=== PATIENT | male | born 1970 | race Hispanic/Latino ===

== ENCOUNTER 2022-07-02 06:54 | Emergency (ER) | payer SELFPAY ==
[2022-07-02 09:08] LABS: Basophils % (Auto) 0.7 % (0.0-1.8); Eosinophils # (Auto) 0.1 K/mm3 (0.0-0.4); Eosinophils % (Auto) 0.8 % (0.0-4.3); Hematocrit 42.1 % (35.5-45.6); Hemoglobin 13.8 gm/dl (11.8-15.2); Lymphocytes # (Auto) 1.5 K/mm3 (1.2-5.4); Lymphocytes % (Auto) 23.5 % (13.4-35.0); Mean Corpuscular HGB Conc 33 % (32-34); Mean Corpuscular Volume 77 fl (84-94); Monocytes # (Auto) 0.5 K/mm3 (0.0-0.8); Platelet Count 120 K/mm3 (140-440); Red Blood Count 5.44 M/mm3 (3.65-5.03); Red Cell Distribution Width 19.4 % (13.2-15.2)
[2022-07-02 09:29] LABS: Alanine Aminotransferase 24 units/L (7-56); Albumin 4.2 g/dL (3.9-5); BUN/Creatinine Ratio 15; Blood Urea Nitrogen 18 mg/dL (9-20); Hemolysis Index 4
[2022-07-02] MEDS ORDERED: IBUPROFEN 600 MG TAB PO ONE (20:13)
[2022-07-03] MEDS ORDERED: SODIUM CHLORIDE 0.9% 500 ML 500 ML IV ONE (01:42)
[2022-07-03] MEDS ORDERED: MORPHINE 4 MG/1 ML INJ IV ONE (01:42)
[2022-07-03] MEDS ORDERED: PANTOPRAZOLE 40 MG INJ IV ONE (01:42)
[2022-07-03] MEDS ORDERED: ONDANSETRON 4 MG/2 ML INJ IV ONE (01:42)
--- NOTE | 2022-07-03 01:46 | Emergency Department Report ---
ED General Adult HPI - General Chief complaint: Nausea/Vomiting/Diarrhea Stated complaint: VOMITING PUI?: No Time Seen by Provider: 07/03/22 01:29 Source: patient, EMS ( EMS documentation not available at time of chart di ctation ), RN notes reviewed Mode of arrival: Stretcher Limitations: No Limitations - History of Present Illness Initial comments: The patient was evaluated in the emergency department for symptoms described in the history of present illness. He/she was evaluated in the context of the global COVID-19 pandemic, which necessitated consideration that the patient might be at risk for infection with the virus that causes COVID-19. Institutional protocols and algorithms that pertain to the evaluation of chaz ents at risk for COVID-19 are in a state of rapid change based on information released by regulatory bodies including the CDC and federal and state organizations. These policies and algorithms were followed during the patient's care in the emergency department. Please note that these policies, procedures and recommendations changed on a rapid basis. This is a 51-year-old gentleman with a history of morbid obesity, tobacco abuse, hypertension, presumed neuropathy, underlying psychiatric disease, who is currently on a 1013 for suicidality. The patient is not currently suicidal. 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 He also endorses chronic lower back pain. The patient presents to the department today with complaint of lower abdominal pain, and back pain, with nausea and vomiting. He also believes that he is thrown up some reddish stuff, perhaps blood, but he is not certain. He has chest wall pain associate with vomiting from yesterday. He reports brown stool, with possible red blood. He denies testicular pain, without urinary symptoms He believes that he last defecated this morning. -: Gradual, hour(s), days(s) Location: chest, back, abdomen Severity scale (0 -10): 5 Quality: aching Consistency: intermittent Improves with: rest Worsens with: movement - Related Data Previous Rx's Medication Instructions Recorded Last Taken Type Metoclopramide [Reglan] 10 mg PO Q6HR PRN #30 tablet 07/03/22 Unknown Rx Pantoprazole [Protonix TAB] 20 mg PO BID #60 tab 07/03/22 Unknown Rx Allergies Allergy/AdvReac Type Severity Reaction Status Date / Time No Known Allergies Allergy Unverified 07/02/22 07:02 ED Review of Systems ROS: Stated complaint: VOMITING Other details as noted in HPI Constitutional: denies: fever Eyes: denies: eye discharge ENT: denies: dental pain Respiratory: denies: stridor, wheezing Cardiovascular: chest pain Gastrointestinal: abdominal pain, nausea, vomiting, hematochezia. denies: melena Genitourinary: denies: dysuria, testicular pain Musculoskeletal: back pain Neurological: denies: weakness Psychiatric: anxiety. denies: auditory hallucinations, visual hallucinations, homicidal thoughts, suicidal thoughts Hematological/Lymphatic: denies: easy bleeding ED Past Medical Hx - Medications Home Medications: Home Medications Medication Instructions Recorded Confirmed Last Taken Type Metoclopramide [Reglan] 10 mg PO Q6HR PRN #30 tablet 07/03/22 Unknown Rx Pantoprazole [Protonix TAB] 20 mg PO BID #60 tab 07/03/22 Unknown Rx ED Physical Exam - General Limitations: No Limitations General appearance: alert, in no apparent distress, obese - Head Head exam: Present: atraumatic, normocephalic - Eye Eye exam: Present: normal appearance, EOMI. Absent: nystagmus - ENT ENT exam: Present: normal exam, normal orophraynx, mucous membranes moist, normal external ear exam - Neck Neck exam: Present: normal inspection, full ROM. Absent: tenderness, men ingismus - Respiratory Respiratory exam: Present: normal lung sounds bilaterally, chest wall tenderness. Absent: respiratory distress, wheezes, rales, rhonchi, stridor, decreased breath sounds - Cardiovascular Cardiovascular Exam: Present: regular rate, normal rhythm, normal heart sounds. Absent: bradycardia, tachycardia, irregular rhythm, systolic murmur, diastolic murmur, rubs, gallop - GI/Abdominal GI/Abdominal exam: Present: soft, tenderness, other (There is mild lower abd ominal tenderness to deep palpation). Absent: distended, guarding, rebound, rigid, pulsatile mass - Rectal Rectal exam: Present: normal inspection, normal rectal tone, other (Patient provides consent for digital rectal examination. Retail Account Specialist in the room during rectal examination.). Absent: black stool, bloody stool, fecal impaction, hemorrhoids, prostate tenderness, prostate enlargement - exam: Present: normal inspection, other (There is normal testicular lie. There is normal cremasteric reflex. There is no testicular tenderness. There is no testicular swelling). Absent: testicular tenderness External exam: Present: normal external exam (Patient provides consent for genital examination, tipple operator in room.) - Extremities Exam Extremities exam: Present: normal inspection, full ROM, other (2+ pulses noted in the bilateral upper and lower extremities. There is no palpable cord. negative Homans sign. Muscular compartments are soft. The pelvis is stable.). Absent: calf tenderness - Back Exam Back exam: Present: normal inspection, muscle spasm, paraspinal tenderness. Absent: tenderness, CVA tenderness (R), CVA tenderness (L), vertebral tenderness - Neurological Exam Neurological exam: Present: alert, oriented X3, normal gait, other (No facial droop. Tongue midline. Extraocular movements intact bilaterally. Facial sensation intact to light touch in V1, V2, V3 distribution bilaterally. 5 and a 5 strength in 4 extremities. Sensation intact to light touch in 4 extremities.). Absent: motor sensory deficit - Psychiatric Psychiatric exam: Absent: homicidal ideation, suicidal ideation - Skin Skin exam: Present: warm, dry, intact, normal color. Absent: rash ED Course Vital Signs 07/02/22 07/02/22 07/03/22 06:59 20:14 02:45 Temperature 97.6 F 98.1 F Pulse Rate 105 H 99 H Respiratory 16 18 Rate Blood Pressure Blood Pressure 107/76 133/78 [Right] O2 Sat by Pulse 95 97 98 Oximetry 07/03/22 03:01 Temperature Pulse Rate 89 Respiratory 21 Rate Blood Pressure 113/72 Blood Pressure [Right] O2 Sat by Pulse 96 Oximetry - Reevaluation(s) Reevaluation #1: 07/03/22 02:38 Differential diagnosis, including but not limited to: Costochondritis, Ariadne- Moraes tear, gastritis, pneumonia, mechanical back pain, colitis, diverticulitis, renal colic, appendicitis, AAA Assessment and plan: 51-year-old gentleman, who is afebrile, with reassuring vital signs, resolved tachycardia, resenting with a primary complaint of lower abdominal pain, lower back pain, multiple secondary complaints, including chest wall pain, nausea, vomiting, possible reddish emesis, possible blood on stool. In terms of the patient's abdominal pain and back pain, obtain CT scan abdomen pelvis, and treat symptoms. Hemoglobin, hematocrit stable x2. Presuming troponin negative x1, chest wall pain present for over 24 hours, the patient denies DVT and pulmonary embolism risk factors, he is low risk by Wells criteria for pulmonary embolism. Therefore, I think a PE is very unlikely. In terms of the patient's abdominal pain, obtain CT scan of the abdomen pelvis. In terms of the patient's chest wall pain, x-ray the chest unremarkable, tr oponin negative x1, currently awaiting EKG. In terms of the patient's complaint of reddish emesis, he has no blood on rectal examination, I have not seen him vomit, his chest x-ray is unremarkable and hemoglobin, hematocrit are unremarkable at this time. Avoid NSAIDs, alcohol, tobacco, start PPI, outpatient GI follow-up. Currently awaiting EKG, CT scan abdomen pelvis. 07/03/22 03:33 CT scan abdomen pelvis suggest cirrhotic changes. The patient does report that he is an alcoholic. His EKG is not a STEMI. His troponin is negative. He is drinking water. There is no active vomiting. He denies irritative and obstructive urinary symptoms, as well as testicular pain. His exam is benign and unremarkable. Patient advised as to CT scan findings. We discussed diet lifestyle modifications. He may follow-up with outpatient GI. ED Medical Decision Making - Lab Data Result diagrams: 07/03/22 01:51 07/02/22 08:52 Vital Signs 07/02/22 07/02/22 06:59 20:14 Temperature 97.6 F 98.1 F Pulse Rate 105 H 99 H Respiratory 16 18 Rate Blood Pressure 107/76 133/78 [Right] O2 Sat by Pulse 95 97 Oximetry Lab Results 07/02/22 07/02/22 07/02/22 Range/Units 08:52 08:52 08:52 WBC 6.2 (4.5-11.0) K/mm3 RBC 5.44 H (3.65-5.03) M/mm3 Hgb 13.8 (11.8-15.2) gm/dl Hct 42.1 (35.5-45.6) % MCV 77 L (84-94) fl MCH 25 L (28-32) pg MCHC 33 (32-34) % RDW 19.4 H (13.2-15.2) % Plt Count 120 L (140-440) K/mm3 Lymph % (Auto) 23.5 (13.4-35.0) % Pitt % (Auto) 8.0 H (0.0-7.3) % Eos % (Auto) 0.8 (0.0-4.3) % Baso % (Auto) 0.7 (0.0-1.8) % Lymph # (Auto) 1.5 (1.2-5.4) K/mm3 Pitt # (Auto) 0.5 (0.0-0.8) K/mm3 Eos # (Auto) 0.1 (0.0-0.4) K/mm3 Baso # (Auto) 0.0 (0.0-0.1) K/mm3 Seg Neutrophils % 67.0 (40.0-70.0) % Seg Neutrophils # 4.2 (1.8-7.7) K/mm3 Sodium 140 (137-145) mmol/L Potassium 4.5 (3.6-5.0) mmol/L Chloride 106.3 (98-107) mmol/L Carbon Dioxide 23 (22-30) mmol/L Anion Gap 15 mmol/L BUN 18 (9-20) mg/dL Creatinine 1.2 (0.8-1.3) mg/dL Estimated GFR > 60 ml/min BUN/Creatinine Ratio 15 % Glucose 110 H (75-100) mg/dL Calcium 9.0 (8.4-10.2) mg/dL Magnesium (1.7-2.3) mg/dL Total Bilirubin 1.50 H (0.1-1.2) mg/dL AST 21 (5-40) units/L ALT 24 (7-56) units/L Alkaline Phosphatase 78 (35-129) units/L Total Creatine Kinase (55-170) units/L Troponin T < 0.010 (0.00-0.029) ng/mL Total Protein 6.6 (6.3-8.2) g/dL Albumin 4.2 (3.9-5) g/dL Albumin/Globulin Ratio 1.8 % Lipase 47 (13-60) units/L Acetaminophen (10.0-30.0) ug/mL Plasma/Serum Alcohol < 0.01 (0-0.07) % 07/03/22 07/03/22 07/03/22 Range/Units 01:51 01:51 01:51 WBC (4.5-11.0) K/mm3 RBC (3.65-5.03) M/mm3 Hgb 13.2 (11.8-15.2) gm/dl Hct 41.6 (35.5-45.6) % MCV (84-94) fl MCH (28-32) pg MCHC (32-34) % RDW (13.2-15.2) % Plt Count (140-440) K/mm3 Lymph % (Auto) (13.4-35.0) % Pitt % (Auto) (0.0-7.3) % Eos % (Auto) (0.0-4.3) % Baso % (Auto) (0.0-1.8) % Lymph # (Auto) (1.2-5.4) K/mm3 Pitt # (Auto) (0.0-0.8) K/mm3 Eos # (Auto) (0.0-0.4) K/mm3 Baso # (Auto) (0.0-0.1) K/mm3 Seg Neutrophils % (40.0-70.0) % Seg Neutrophils # (1.8-7.7) K/mm3 Sodium (137-145) mmol/L Potassium (3.6-5.0) mmol/L Chloride (98-107) mmol/L Carbon Dioxide (22-30) mmol/L Anion Gap mmol/L BUN (9-20) mg/dL Creatinine (0.8-1.3) mg/dL Estimated GFR ml/min BUN/Creatinine Ratio % Glucose (75-100) mg/dL Calcium (8.4-10.2) mg/dL Magnesium 2.20 (1.7-2.3) mg/dL Total Bilirubin (0.1-1.2) mg/dL AST (5-40) units/L ALT (7-56) units/L Alkaline Phosphatase (35-129) units/L Total Creatine Kinase 52 L (55-170) units/L Troponin T < 0.010 (0.00-0.029) ng/mL Total Protein (6.3-8.2) g/dL Albumin (3.9-5) g/dL Albumin/Globulin Ratio % Lipase (13-60) units/L Acetaminophen 5.0 L (10.0-30.0) ug/mL Plasma/Serum Alcohol (0-0.07) % - EKG Data -: EKG Interpreted by Wi EKG shows normal: sinus rhythm Rate: normal - EKG Data When compared to previous EKG there are: previous EKG unavailable 07/03/22 02:53 The EKG is interpreted at 02: 4 0 Sinus rhythm, rate 83 bpm. Normal axis, normal P wave axis, QTC 4 6 8 ms, and motion artifact. This is an abnormal EKG. This is not a STEMI. No prior EKGs available for comparison - Radiology Data Radiology results: pending, report reviewed, image reviewed CHEST 1 VIEW 07/03/2022 2:03 AM INDICATION / CLINICAL INFORMATION: Left-sided chest pain. COMPARISON: None available. FINDINGS: SUPPORT DEVICES: None. HEART / MEDIASTINUM: No significant abnormality. LUNGS / PLEURA: Calcified nodule left lower lung No pneumothorax. ADDITIONAL FINDINGS: No significant additional findings. IMPRESSION: 1. No acute findings. Signer Name: Osmin Bautista MD Signed: 07/03/2022 1:15 AM Workstation Name: [employer] CT ABDOMEN AND PELVIS WITH CONTRAST HISTORY: Acute abdominal pain with lower back pain nausea. COMPARISON: None. TECHNIQUE: CT images of the abdomen and pelvis were obtained following administration of intravenous contrast. All CT scans at this location are performed using CT dose reduction for ALARA by means of automated exposure control. CONTRAST: 100 ml of intravenous contrast administered. FINDINGS: Lungs/bones: Lung bases are clear Abdomen/pelvis: There is diffuse fatty infiltration the liver. Nodular surface suggesting cirrhosis. Multiple gallstones in the gallbladder. The spleen is enlarged. Adrenal glands appear normal. Pancreas and upper GI tract appear normal. Right renal atrophy with multiple right renal cysts. Largest cyst is in the upper pole measuring 3.8 cm. There is no bowel obstruction. Retroaortic left renal vein incidentally noted. No focal inflammatory changes seen. Discogenic degenerative change. Posterior disc osteophytes with neuroforaminal narrowing at several le vels best seen at L5-S1. Atherosclerotic changes seen throughout the aorta IMPRESSION: 1. Cirrhotic liver configuration with diffuse fatty infiltration. Splenomegaly is also identified. 2. Cholelithiasis 3. Prominent vessels in the upper abdomen suggest varices and likely secondary to portal hypertension and cirrhosis. 4. Degenerative change throughout spine. Neuroforaminal narrowing at L5-S1. Signer Name: Osmin Bautista MD Signed: 07/03/2022 1:51 AM Workstation Name: [employer] [id number] Critical care attestation.: If time is entered above; I have spent that time in minutes in the direct care of this critically ill patient, excluding procedure time. ED Disposition Clinical Impression: Chest wall pain, Acute abdominal pain, Body mass index between 30-39, adult, Abnormal computed tomography of abdomen and pelvis Disposition: [address] [place] [address] Is pt being admited?: No Does the pt Need Aspirin: No Condition: Good Instructions: Abdominal Pain, Adult, [id number], Chest Wall Pain, Obesity, Ad ult, [id number] Additional Instructions: Avoid consumption of Motrin, ibuprofen, Naprosyn, Aleve, alcohol, tobacco and smoke products. Do not take metformin medication for the next 2 days, if patient takes this medication. Patient may take the prescribed medications as needed and directed. Recommend follow-up with a primary care doctor for general medical maintenance within the next week. Recommend follow-up with an outpatient gastroenterology physician within the next month, for evaluation for outpatient colonoscopy, to screen for colon cancer, tumor, cancer, malignancy. The CT scan of your abdomen pelvis suggested cirrhosis/liver disease. It is very important to follow-up with an outpatient rn lvn to further evaluate and manage. Recommend follow-up with a rn lvn within the next 2 to 4 weeks. Please have your primary care doctor contact the medical records department, to obtain copies of laboratory studies and imaging studies, and follow-up on nonemergent incidental abnormal findings. Please return to the emergency room right away with new pain, worsened pain, migration of pain, projectile vomiting, change in mental status, confusion, inability tolerate liquid feeds, new, worsened or different symptoms not present on the initial emergency room evaluation We also recommend that the patient aggressively exercise, diet, and lose weight to improve body mass index of greater than 38. Prescriptions: Pantoprazole [Protonix TAB] 20 mg PO BID #60 tab Metoclopramide [Reglan] 10 mg PO Q6HR PRN #30 tablet PRN Reason: Nausea Referrals: [facility] [Provider Group] - 3-5 Days [facility] [Provider Group] - 3-5 Days Heart Score - HEART Score History: Slightly suspicious EKG: Non-specific Age: 45-65 Risk factors: 1-2 risk factors Troponin: < normal limit HEART Score: 3 - EKG Read Time Time EKG Completed: 02:40 EKG Read Time: 02:40 - Critical Actions Critical Actions: 0-3 pts:0.9-1.7%risk of adverse cardiac event.Candidate for discharge
[2022-07-03 02:13] LABS: Hematocrit 41.6 % (35.5-45.6); Hemoglobin 13.2 gm/dl (11.8-15.2)
--- NOTE | 2022-07-03 02:20 | XRay Report ---
CHEST 1 VIEW 07/03/2022 2:03 AM INDICATION / CLINICAL INFORMATION: Left-sided chest pain. COMPARISON: None available. FINDINGS: SUPPORT DEVICES: None. HEART / MEDIASTINUM: No significant abnormality. LUNGS / PLEURA: Calcified nodule left lower lung No pneumothorax. ADDITIONAL FINDINGS: No significant additional findings. IMPRESSION: 1. No acute findings. Signer Name: Osmin Bautista MD Signed: 07/03/2022 2:15 AM Workstation Name: [id number]
--- NOTE | 2022-07-03 02:55 | Cat Scan Report ---
CT ABDOMEN AND PELVIS WITH CONTRAST HISTORY: Acute abdominal pain with lower back pain nausea. COMPARISON: None. TECHNIQUE: CT images of the abdomen and pelvis were obtained following administration of intravenous contrast. All CT scans at this location are performed using CT dose reduction for ALARA by means of automated exposure control. CONTRAST: 100 ml of intravenous contrast administered. FINDINGS: Lungs/bones: Lung bases are clear Abdomen/pelvis: There is diffuse fatty infiltration the liver. Nodular surface suggesting cirrhosis. Multiple gallstones in the gallbladder. The spleen is enlarged. Adrenal glands appear normal. Pancre as and upper GI tract appear normal. Right renal atrophy with multiple right renal cysts. Largest cys t is in the upper pole measuring 3.8 cm. There is no bowel obstruction. Retroaortic left renal vein i ncidentally noted. No focal inflammatory changes seen. Discogenic degenerative change. Posterior disc osteophytes with neuroforaminal narrowing at several l evels best seen at L5-S1. Atherosclerotic changes seen throughout the aorta IMPRESSION: 1. Cirrhotic liver configuration with diffuse fatty infiltration. Splenomegaly is also identified. 2. Cholelithiasis 3. Prominent vessels in the upper abdomen suggest varices and likely secondary to portal hypertension and cirrhosis. 4. Degenerative change throughout spine. Neuroforaminal narrowing at L5-S1. Signer Name: Osmin Bautista MD Signed: 07/03/2022 2:51 AM Workstation Name: [id number]
[2022-07-03 03:56] VITALS: BP 135/81
[2022-07-03 04:00] LABS: Color,Urine Yellow (Yellow); Mucus,Urine 2+ /HPF
--- NOTE | 2022-07-03 22:44 | Electrocardiograph Report ---
[facility] Test Date: 2022-07-03 Test Time: 02:40:52 Pat Name: JIMMY EMERSON Department: Room: Gender: M Benefits Sales Consultant: adán : 1970 Requested By: TAPAN SANZ Order Number: [id number] Reading MD: Rafiq Perales Measurements Intervals [place] Rate: 83 P: 14 MA: 168 QRS: 136 QRSD: 120 T: 1 QT: 398 QTc: 468 Interpretive Statements Sinus rhythm Nonspecific intraventricular conduction delay No previous ECG available for comparison Electronically Signed On 07-03-2022 22:44:02 EDT by Rafiq Perales
== END 2022-07-03 09:03 ==
LOC: ED 06:54
DX: R07.9 Chest pain, unspecified (principal); R10.9 Unspecified abdominal pain; Z68.30 Body mass index [BMI] 30.0-30.9, adult
CPT/HCPCS: 36415; 71045; 74177; 80053; 81001; 82270; 82550; 83690; 83735; 84484; 85014; 85018; 85025; 93005; 96374; 96375; 99285; C9113; J2270; J2405; J7040; Q9967; 80320; G0480